=== PATIENT | female | born 1995 | race Caucasian/White ===

== ENCOUNTER 2016-11-10 12:41 | Emergency (ER) | payer BC, OTHER ==
[2016-11-10 12:49] VITALS: BP 124/67
--- NOTE | 2016-11-10 12:50 | UC ---
UC General HPI - HPI Summary HPI Summary: 21 YEAR OLD FEMALE PRESENTS WITH COMPLAINS OF RIGHT SIDED RIB PAIN. - History of Current Complaint Chief Complaint: UCRespiratory Stated Complaint: RIB PAIN Time Seen by Provider: 11/10/16 12:48 Hx Obtained From: Patient Hx Last Menstrual Period: 10/21/16 Onset/Duration: Sudden Onset, Lasting Days Onset Severity: Moderate Current Severity: Moderate Associated Signs & Symptoms: Positive: Back Pain - Allergy/Home Medications Allergies/Adverse Reactions: Allergies Allergy/AdvReac Type Severity Reaction Status Date / Time Codeine AdvReac Severe Vomiting Verified 11/10/16 12:48 Oxycodone AdvReac Severe Vomiting Verified 11/10/16 12:48 PMH/Surg Hx/FS Hx/Imm Hx Previously Healthy: Yes - Surgical History Surgical History: Yes Surgery Procedure, Year, and Place: WISDOM TEETH EXTRACTION - Family History Known Family History: Positive: Unknown - Social History Alcohol Use: Rare Substance Use Type: None Smoking Status (MU): Never Smoked Tobacco - Immunization History Vaccination Up to Date: Yes Review of Systems Constitutional: Negative Skin: Negative Eyes: Negative ENT: Negative Respiratory: Negative Cardiovascular: Negative Gastrointestinal: Negative Genitourinary: Negative Motor: Negative Neurovascular: Negative Musculoskeletal: Other: - LEFT INTERCOSTAL PAIN Neurological: Negative Psychological: Negative All Other Systems Reviewed And Are Negative: Yes Physical Exam Triage Information Reviewed: Yes Vital Signs: Initial Vital Signs Temp 37.1 C 11/10/16 12:42 Pulse 79 11/10/16 12:42 Resp 16 11/10/16 12:42 BP 124/67 11/10/16 12:42 Pulse Ox 100 11/10/16 12:42 Eye Exam: Normal ENT Exam: Normal Dental Exam: Normal Neck exam: Normal Neck: Positive: 1 Respiratory Exam: Normal Cardiovascular Exam: Normal Abdominal Exam: Normal Musculoskeletal: Positive: Other: - LEFT INTERCOSTAL PAIN Neurological Exam: Normal Psychological Exam: Normal Skin Exam: Normal Course/Dx - Differential Dx - Multi-Symptom Provider Diagnoses: COSTOCHONDRITIS Discharge - Discharge Plan Condition: Stable Disposition: HOME Prescriptions: Meloxicam [Mobic] 7.5 mg PO BID #30 tab Methocarbamol TAB* [Robaxin 500 MG TAB*] 500 mg PO TID PRN #30 tab PRN Reason: Spasms - Back Patient Education Materials: Costochondritis (ED) Referrals: Roberta LUCERO,Vicky [Primary Care Provider] - If Needed
== END 2016-11-10 13:26 | disposition home or self-care (01) ==
LOC: UCEAST 12:41
DX: M94.0 Chondrocostal junction syndrome [Tietze] (principal); Z88.5 Allergy status to narcotic agent
CPT/HCPCS: 99212; G0463

== ENCOUNTER 2018-01-29 18:27 | Emergency (ER) | payer OTHER ==
--- NOTE | 2018-01-29 18:48 | UC ---
Skin Complaint HPI - HPI Summary HPI Summary: 22 yo female presents with a generalized headache. She tells me that 2 days ago she woke up in the middle of the night with generalized stomach cramping and vomited. The rest of that day did not feel well and didn't eat much. She developed a generalized headache and body aches that have been persisting since that time. Still having a decreased appetite, but no more vomiting. She is able to eat and drink, but doesn't feel hungry. Denies fever, chills, sore throat, cough, SOB, chest pain, abdominal pain, v/d/c, dysuria. LMP was 1 week ago. She mentions that she was bitten by a tick 5 days ago, but it was not engorged and was on her for less than an hour. - History of Current Complaint Time Seen by Provider: 01/29/18 18:47 Stated Complaint: TICK BITE Hx Obtained From: Patient Hx Last Menstrual Period: 10/21/16 Onset/Duration: Sudden Onset - Allergy/Home Medications Allergies/Adverse Reactions: Allergies Allergy/AdvReac Type Severity Reaction Status Date / Time codeine Allergy Unknown Vomiting Verified 01/29/18 18:45 oxycodone Allergy Unknown Vomiting Verified 01/29/18 18:45 Review of Systems All Other Systems Reviewed And Are Negative: Yes Constitutional: Positive: Other - Body aches Skin: Positive: Negative Eyes: Positive: Negative ENT: Positive: Negative Respiratory: Positive: Negative Cardiovascular: Positive: Negative Gastrointestinal: Positive: Nausea Genitourinary: Positive: Negative Neurovascular: Positive: Negative Musculoskeletal: Positive: Negative Neurological: Positive: Headache Psychological: Positive: Negative PMH/Surg Hx/FS Hx/Imm Hx - Additional Past Medical History Additional PMH: None Previously Healthy: Yes - Surgical History Surgical History: Yes Surgery Procedure, Year, and Place: WISDOM TEETH EXTRACTION - Family History Known Family History: Positive: Unknown - Social History Occupation: Employed Full-time Lives: With Family Alcohol Use: Rare Substance Use Type: None Smoking Status (MU): Never Smoked Tobacco - Immunization History Vaccination Up to Date: Yes Physical Exam - Summary Physical Exam Summary: GENERAL: NAD. WDWN. No pain distress. SKIN: No rashes, sores, ulcers, masses, lesions. HEENT: Head: AT/NC Eyes: PERRLA. EOM intact. Conjunctiva clear without inflammation or discharge. Ears: Hearing grossly normal. TMs intact, no bulging, erythema, or edema. Nose: Nasal mucosa pink and moist. NTTP maxillary and frontal sinus. Throat: Posterior oropharynx without exudates, erythema, or tonsillar enlargement. Uvula midline. NECK: Supple. Nontender. No lymphadenopathy. CHEST: CTAB. No r/r/w. No accessory muscle use. Breathing comfortably and in no distress. CV: RRR. Without m/r/g. Pulses intact. Brisk cap refill. ABDOMEN: Soft. NTTP. No distention or guarding. No CVA tenderness. Bowel sounds present MSK: FROM in B/L UEs and LEs with symmetric strength. NEURO: A&Ox3. 3 word recall, remote, recent memory, ability to follow 2-step directions, and attention intact. CN: II: Peripheral funes intact. Vision normal. III, IV, : EOMI. No nystagmus. PERRLA. V: Sensations intact and symmetric. Opens mouth and clenches teeth. VII: No facial asymmetry. Forehead wrinkles. Grins, shuts eyes, frowns, puffs cheeks. VIII: Hearing intact to finger rub. IX, X: Swallows and coughs. Uvula midline. XI: Shrugs shoulders. Turns head against resistance. XII: No tongue deviation Spntma-bm-tdeh are intact. Gait with normal base. Romberg: maintains balance, no pronator drift. Normal speech. No facial drooping. PSYCH: Age appropriate behavior. Triage Information Reviewed: Yes Vital Signs: Vital Signs: Temp Pulse Resp BP Pulse Ox 98.3 F 68 15 120/73 99 01/29/18 18:47 01/29/18 18:47 01/29/18 18:47 01/29/18 18:47 01/29/18 18:47 Vital Signs Reviewed: Yes Course/Dx - Course Course Of Treatment: She is well appearing and exam is WNL. I suspect she has a viral illness. She was given toradol 60mg in the clinic for her headache and will dc with an rx for zofran. Advised to f/u if her symptoms persist or worsen. - Diagnoses Provider Diagnoses: Viral syndrome. Headache. Body aches Discharge - Sign-Out/Discharge Documenting (check all that apply): Patient Departure All imaging exams completed and their final reports reviewed: No Studies - Discharge Plan Condition: Stable Disposition: HOME Prescriptions: Ondansetron ODT TAB* [Zofran 4 MG Odt TAB*] 4 mg PO Q8H PRN #12 tab.odt PRN Reason: Nausea Patient Education Materials: Gastroenteritis (ED), Viral Syndrome (ED) Referrals: No Primary Care Phys,NOPCP [Primary Care Provider] - Additional Instructions: If you develop a fever, shortness of breath, chest pain, new or worsening symptoms - please call your PCP or go to the ED. - Billing Disposition and Condition Condition: STABLE Disposition: Home
[2018-01-29 18:55] VITALS: BP 120/73
[2018-01-29] MEDS ORDERED: Ketorolac INJ* 60 MG/2 ML VIAL IM ONE (19:09)
[2018-01-29] MEDS ORDERED: Ondansetron ODT TAB* 4 MG PO ONE (19:09)
== END 2018-01-29 19:30 | disposition home or self-care (01) ==
LOC: UCCORT 18:27
DX: B34.9 Viral infection, unspecified (principal); R51 Headache; R52 Pain, unspecified; Z88.5 Allergy status to narcotic agent
CPT/HCPCS: 96372; 99212; A9270-GY; G0463; J1885

== ENCOUNTER 2018-09-27 02:20 | Emergency (ER) | payer OTHER ==
[2018-09-27] MEDS ORDERED: diPHENhydraMINE IV* 50 MG/ML 1 ml VIAL (BENADRYL) IV ONE (03:43)
[2018-09-27] MEDS ORDERED: Ketorolac INJ* 30 MG/ML 1 ML VIAL IV PUSH ONE (03:43)
[2018-09-27] MEDS ORDERED: PROCHLORPERAZINE INJ 5 MG/ML 2 ML VIAL IV ONE (03:43)
[2018-09-27] MEDS ORDERED: NS 0.9% 1000 ML** 2,000 ML IV ONE (03:43)
--- NOTE | 2018-09-27 03:48 | ED ---
Headache - HPI Summary HPI Summary: This pt is a 23 y/o F presenting to [facility] with a CC of a headache since 09/26. She states that it has progressively gotten worse over time. She fell asleep and then woke up around 1300 today because of the pain which she rates a 9/10 in severity. She states that she has numbness in her finger tips, her R eye is blurry, she has chills, and she has been nausea and vomiting. She denies any CP, abdominal pain, and fevers. She has a Hx of migraines but states that the pain has never been this intense. She has no alleviating or factors but has increased pain when looking at light. - History Of Current Complaint Chief Complaint: EDHeadache Stated Complaint: HEADACHE/TINGLING LEGS AND ARMS Hx Obtained From: Patient Onset/Duration: Sudden Onset, Started hours ago, Still Present, Worse Since Initially Headache Was: Moderate Currently Pain Is: Severe - 9/10 Timing: Constant Character: Migraine Location of Headache: Diffuse Aggravating Factor: Bright Lights Allevating Factors: Nothing Associated Signs And Symptoms: Negative - CP, abdominal pain, and fevers, Nausea , Vomiting, Other (Noted In Comments) - photophobia, migraine, numbness - Allergies/Home Medications Allergies/Adverse Reactions: Allergies Allergy/AdvReac Type Severity Reaction Status Date / Time codeine Allergy Unknown Vomiting Verified 09/27/18 02:27 oxycodone Allergy Unknown Vomiting Verified 09/27/18 02:27 PMH/Surg Hx/FS Hx/Imm Hx Previously Healthy: No Endocrine/Hematology History: Denies: Hx Diabetes Cardiovascular History: Denies: Hx Hypertension Respiratory History: Reports: Hx Asthma - as a child Neurological History: Reports: Hx Migraine - Surgical History Surgery Procedure, Year, and Place: WISDOM TEETH EXTRACTION Infectious Disease History: No Infectious Disease History: Denies: Traveled Outside the [place] in Last 30 Days - Family History Known Family History: Positive: Unknown, Other - migraines: paternal - Social History Occupation: Employed Full-time Lives: With Family Alcohol Use: Rare Hx Substance Use: No Substance Use Type: Reports: None Hx Tobacco Use: No Smoking Status (MU): Never Smoked Tobacco Household Exposure: No Review of Systems Negative: Fever Negative: Chest Pain Positive: Vomiting, Nausea. Negative: Abdominal Pain Neurological: Other - Photophobia Positive: Headache - migraine, Numbness All Other Systems Reviewed And Are Negative: Yes Physical Exam - Summary Physical Exam Summary: Appearance: Well-appearing, Well-nourished, lying in bed comfortably Skin: Warm, dry, no obvious rash Eyes: sclera anicteric, no conjunctival pallor ENT: mucous membranes moist, pharynx appears normal Neck: Supple, nontender Respiratory: Clear to auscultation, no signs of respiratory distress Cardiovascular: Normal S1, S2. No murmurs. Normal distal pulses in tibial and radial bilaterally. Abdomen: Soft, nontender, normal active bowel sounds present Musculoskeletal: Normal, Strength/ROM Intact Neurological: A&Ox3, awake and alert, mentation is normal, speech is fluent and appropriate Psychiatric: affect is normal, does not appear anxious or depressed Triage Information Reviewed: Yes Vital Signs On Initial Exam: Initial Vitals Temp Pulse Resp BP Pulse Ox 98.0 F 96 18 121/74 100 09/27/18 02:26 09/27/18 02:26 09/27/18 02:26 09/27/18 02:26 09/27/18 02:26 Vital Signs Reviewed: Yes Diagnostics - Vital Signs Vital Signs Temp Pulse Resp BP Pulse Ox 09/27/18 02:26 98.0 F 96 18 121/74 100 - Laboratory Lab Statement: Any lab studies that have been ordered have been reviewed, and results considered in the medical decision making process. Re-Evaluation - Re-Evaluation First Eval Re-Evaluation Time: 06:18 Change: Improved Comment: States that she is feeling better after the medication has taken effect and will be discharged home. She is agreeable. Headache Course/Dx - Course Course Of Treatment: This pt is a 23 y/o F presenting to [facility] with a CC of a headache since 2100 09/26/18. She states that it has progressively gotten worse over time. She fell asleep and then woke up around 1300 today because of the pain which she rates a 9/10 in severity. She had no abnormal findings during her PE. She was given Compazine, Toradol, and benadryl during her ED course. She reports feeling better at 0618 and will be discharged home with a Dx of migraine headache. - Diagnoses Provider Diagnoses: Migraine headache Discharge - Sign-Out/Discharge Documenting (check all that apply): Patient Departure - discharge Patient Received Moderate/Deep Sedation with Procedure: No - Discharge Plan Condition: Improved Disposition: HOME Prescriptions: Prochlorperazine TAB* [Compazine Tab*] 10 mg PO Q6H PRN #10 tab PRN Reason: Nausea SUMAtriptan TAB* [Imitrex TAB*] 50 mg PO SEE INSTRUCTIONS PRN #12 tab PRN Reason: Headache Patient Education Materials: Migraine Headache (ED) Referrals: Care [facility] [Outside] - If Needed Vargas Medel MD [Medical Doctor] - If Needed - Billing Disposition and Condition Condition: IMPROVED Disposition: Home - Attestation Statements Document Initiated by Scribe: Yes Documenting Scribe: Brian Ruffin Provider For Whom Paulineibestlela is Documenting (Include Credential): Ranulfo Miguel MD Scribe Attestation: Brian Cheema scribed for Ranulfo Miguel MD on 09/28/18 at 0114. Scribe Documentation Reviewed: Yes Provider Attestation: The documentation as recorded by the Brian perry accurately reflects the service I personally performed and the decisions made by Ranulfo fink MD Status of Scribe Document: Viewed
[2018-09-27 06:36] VITALS: BP 121/70
== END 2018-09-27 06:30 | disposition home or self-care (01) ==
LOC: ED 02:20
DX: G43.909 Migraine, unspecified, not intractable, without status migrainosus (principal); R11.2 Nausea with vomiting, unspecified; H53.149 Visual discomfort, unspecified; R20.0 Anesthesia of skin
CPT/HCPCS: 96361; 96374; 96375; 99283; J0780; J1200; J1885

== ENCOUNTER 2018-10-08 17:43 | Emergency (ER) | payer OTHER ==
[2018-10-08 18:03] VITALS: BP 123/64
--- NOTE | 2018-10-08 18:09 | UC ---
Headache HPI - HPI Summary HPI Summary: 23-year-old female who has a history of migraines since she was 9 years of age. She states that she has never had a neurological referral. She states she gets a migraine usually every other week. She had a severe one in the past 2 weeks where she was vomiting and had numbness and tingling in her arms and legs because she was hyperventilating. She has never had a brain CT. Today she states that her migraine is better than it was 2 Sundays ago but she states that it has continued and no medication is working that she's tried. - History Of Current Complaint Chief Complaint: Carlota Stated Complaint: HEADACHE FOR 2 WEEKS Time Seen by Provider: 10/08/18 18:09 Hx Obtained From: Patient Hx Last Menstrual Period: 09/11/18 Onset/Duration: Gradual Onset Onset Of Symptoms: Gradual Initially Headache Was: "Worst Headache Ever" - Patient states she had the worst headache ever 2 Sundays ago however tonight it is not the worst headache she's had. Currently Pain Is: Mild Pain Intensity: 5 Timing: Constant Character: Throbbing, Typical Headache, Migraine Aggravating Factor(s): Nothing Allevating Factor(s): Nothing - Today she is not experiencing nausea or vomiting but she was too weak and skull. - Allergies/Home Medications Allergies/Adverse Reactions: Allergies Allergy/AdvReac Type Severity Reaction Status Date / Time codeine Allergy Unknown Vomiting Verified 10/08/18 18:03 oxycodone Allergy Unknown Vomiting Verified 10/08/18 18:03 PMH/Surg Hx/FS Hx/Imm Hx Previously Healthy: Yes Neurological History: Migraine - Surgical History Surgical History: Yes Surgery Procedure, Year, and Place: WISDOM TEETH EXTRACTION - Family History Known Family History: Positive: Unknown, Other - migraines: paternal - Social History Alcohol Use: Rare Substance Use Type: None Smoking Status (MU): Never Smoked Tobacco - Immunization History Vaccination Up to Date: Yes Review of Systems All Other Systems Reviewed And Are Negative: Yes Constitutional: Positive: Negative Skin: Positive: Negative ENT: Positive: Negative Respiratory: Positive: Negative Cardiovascular: Positive: Negative Gastrointestinal: Positive: Negative Genitourinary: Positive: Negative Motor: Positive: Negative Neurovascular: Positive: Negative Musculoskeletal: Positive: Negative Neurological: Positive: Headache Psychological: Positive: Negative Is Patient Immunocompromised?: No Physical Exam Triage Information Reviewed: Yes Appearance: Well-Appearing, No Pain Distress, Well-Nourished Vital Signs: Initial Vital Signs Temp 97.9 F 10/08/18 17:55 Pulse 75 10/08/18 17:55 Resp 12 10/08/18 17:55 BP 123/64 10/08/18 17:55 Pulse Ox 100 10/08/18 17:55 Vital Signs Reviewed: Yes Eyes: Positive: Conjunctiva Clear, Other: - PERRLA, EOMI ENT: Positive: Hearing grossly normal, Pharynx normal, TMs normal, Uvula midline Neck exam: Normal Neck: Positive: Supple, Nontender, No Lymphadenopathy Respiratory: Positive: Lungs clear, Normal breath sounds, No respiratory distress, No accessory muscle use Cardiovascular: Positive: RRR, No Murmur, Pulses Normal, Brisk Capillary Refill Abdomen Description: Positive: Nontender, No Organomegaly, Soft Bowel Sounds: Positive: Present Musculoskeletal: Positive: Strength Intact, ROM Intact - Good peripheral pulses neuro sensation capillary refill, good arm and leg strength against resistance Neurological: Positive: Alert, Muscle Tone Normal - Good finger to nose bilaterally, normal dystidiokinesis, reflexes +2 at the knee, Romberg negative, good heel-to-toe forward and backward, good [id number] bilaterally. Negative eye drift. Psychological Exam: Normal Skin Exam: Normal Headache Course/Dx - Course Course Of Treatment: CT brain without contrast:FINDINGS: Brain: No acute intracranial hemorrhage or extraaxial collection identified. Beatty/white differentiation is maintained with no evidence of acute infarct. Ventricles: Normal configuration. No hydrocephalus. Bones/joints: No acute fracture. Sinuses: Normal as visualized. No air fluid levels. Mastoid air cells: No mastoid effusion. Soft tissues: Normal. IMPRESSION: Normal head CT I offered the patient an injection of Toradol and she refused. She did request Lyme titers be drawn because she states she has had tick bites in the past however no rash but occasionally feels achy but no fever or chills. Lyme titer was drawn. She is to follow-up with Dr. Granda, neurologist on Thursday by phone to make an appointment to be seen early next week. She is to go to the emergency room if she has any worsening symptoms or worsening headache or any change in her normal mental status. She prefers to continue with her Tylenol and ibuprofen. - Differential Dx/Diagnosis Provider Diagnosis: Headache Discharge - Sign-Out/Discharge Documenting (check all that apply): Patient Departure All imaging exams completed and their final reports reviewed: Yes - Discharge Plan Condition: Fair Disposition: HOME Patient Education Materials: Acute Headache (ED) Referrals: Harish Granda MD [Medical Doctor] - No Primary Care Phys,NOPCP [Primary Care Provider] - Additional Instructions: Go to the emergency room if you have any worsening symptoms. Follow-up with Dr. Granda for further care. - Billing Disposition and Condition Condition: FAIR Disposition: Home
== END 2018-10-08 19:54 | disposition home or self-care (01) ==
LOC: UCEAST 17:43
DX: R51 Headache (principal); Z88.5 Allergy status to narcotic agent
CPT/HCPCS: 36415; 70450; 86617; 86618; 99211; G0463